=== PATIENT | female | born 1985 | race African-American/Black ===

== ENCOUNTER 2020-10-19 19:32 | Emergency (ER) | payer MEDICAID ==
[~2020-10-19] VITALS: Ht 177.8 cm; Wt 65.8 kg
--- NOTE | 2020-10-19 19:32 | NUR ---
Placed in room 2 . Placed on skip miner, blood pressure machine and pulse oximeter. To gown for exam. Side rails up. Report given to CM Mendoza.
[2020-10-19 19:35] VITALS: BP_SYST 144
--- NOTE | 2020-10-19 19:40 | NUR ---
Dr. Fuller bedside for pt eval
[2020-10-19] MEDS ORDERED: EPINEPHrine 1 MG/ML AMP ONE (19:43)
[2020-10-19] MEDS ORDERED: FAMOTIDINE PF 20 MG/2 ML VIAL IVP ONE (19:45)
[2020-10-19] MEDS ORDERED: predniSONE 20 MG TABLET PO ONE (19:45)
[2020-10-19] MEDS ORDERED: EPINEPHrine JECT 0.1 MG/ML SYR IVP ONE (19:45)
--- NOTE | 2020-10-19 19:50 | NUR ---
Pt BIB family to ED with a history of asthma who presents to the ED for an evaluation of an allergic reaction a couple hours ago. The patient reports facial swelling and throat discomfort. Denies any alleviating or exacerbating factors. She states being allergic to peanut, chocolate, and shellfish. Per patient, she ate a couple hours ago, went to sleep, and then woke up feeling uncomfortable. Denies any concerns for . She informs me she took 50mg Benadryl and has an EpiPen but did not use it
[2020-10-19] MEDS ORDERED: FAMOTIDINE 20 MG TABLET ONE (19:53)
[2020-10-19] MEDS ORDERED: EPIN0.3P3 IM (20:44)
[2020-10-19 20:50] VITALS: BP_SYST 144
--- NOTE | 2020-10-19 20:50 | NUR ---
Patient given written and verbal discharge instructions and verbalizes understanding. ER MD discussed with patient the results and treatment provided. Patient in stable condition. ID arm band removed. Rx of Epi Pen given. Patient educated on pain management and to follow up with PMD. Pain Scale 0/10 Opportunity for questions provided and answered. Medication side effect fact sheet provided.
== END 2020-10-19 20:50 | disposition home or self-care (01) ==
LOC: SED 19:32
DX: T78.1XXA Other adverse food reactions, not elsewhere classified, initial encounter (principal); J45.909 Unspecified asthma, uncomplicated; Z79.899 Other long term (current) drug therapy; X58.XXXA Exposure to other specified factors, initial encounter
CPT/HCPCS: 96372; 96374; 99284; J0171; J7512